=== PATIENT | female | born 1945 | race African-American/Black ===

== ENCOUNTER 2020-09-23 12:38 | Inpatient (IN) ==
[2020-09-23] MEDS ORDERED: hydrALAZINE 20 MG/1 ML VIAL IV STA (13:00)
[2020-09-23] MEDS ORDERED: ALBUTEROL 2.5 MG/3 ML NEB RESP TX STA (13:00)
[2020-09-23] MEDS ORDERED: ONDANSETRON 4 MG/2 ML VIAL IV ONE (13:00)
[2020-09-23] MEDS ORDERED: ASPIRIN 325 MG TABLET PO STA (13:00)
[2020-09-23] MEDS ORDERED: ALBUTEROL/IPRATROPIUM 3 ML NEB RESP TX STA (13:00)
[2020-09-23] MEDS ORDERED: methylPREDNISolone SOD SUC 125 MG/2 ML VIAL IV STA (13:01)
[2020-09-23] MEDS ORDERED: LORazepam 2 MG/1 ML VIAL IV STA (13:02)
[2020-09-23 13:24] LABS: Basophils % 0.1 % (0.0-0.8); Eosinophils % 0.4 % (0.00-10.9); Hematocrit 46.1 VOL% (35.7-47.0); Hemoglobin 14.3 GM/DL (12.0-16.0); Immature Granulocytes % 0.4 %; Immature Granulocytes Absolute 0.04 #; Lymphocytes # 0.6 10*3/uL (1.4-4.0); Lymphocytes % 5.2 % (21.3-54.2); Mean Corpuscular Volume 81.9 FL (87-102); Mean Platelet Volume 10.3 FL (9.6-12.0); Monocytes % 3.9 % (1.7-12.7); Platelet Count 317 T/CUMM (130-400); Red Blood Count 5.63 MC/CUMM (3.8-5.5); Red Cell Distribution Width 17.5 % (9.3-17.3); White Blood Count 11.4 T/CUMM (4-12)
[2020-09-23 13:34] LABS: PT Patient Result 10.5 SECS (9.8-11.9)
[2020-09-23 13:44] LABS: ABG Base Excess 9.1 MMOL/L (-2.5-2.5); ABG HCO3 32.9 MMOL/L (20-26); ABG PCO2 60.6 MM HG (35-48); ABG PH 7.391 (7.35-7.45); ABG PO2 98.2 MM HG (80-95); ABG TCO2 31.8 MMOL/L (23-27)
[2020-09-23 14:08] LABS: Alanine Aminotransferase 33 U/L (13-56); Albumin 2.8 G/DL (3.4-5.0); Alkaline Phosphatase 100 U/L (45-117); Aspartate Amino Transferase 26 U/L (0-37); Blood Urea Nitrogen 14 MG/DL (7-18); Calcium 9.5 MG/DL (8.5-10.1); Carbon Dioxide 36 MMOL/L (21-32); Estimated Glom Filtration Rate 119 ML/MIN; Glucose 200 MG/DL (74-106); Potassium 4.5 MMOL/L (3.5-5.1); Sodium 136 MMOL/L (136-145); Total Protein 6.2 G/DL (6.4-8.3); Troponin I < 0.015 NG/ML (0.00-0.045)
[2020-09-23] MEDS ORDERED: VANCOMYCIN INJ 1,000 MG in SODIUM CHLORIDE 0.9% 250 ML IV STA (15:36)
[2020-09-23] MEDS ORDERED: ACETAMINOPHEN 325 MG TABLET PO PRN (17:16)
[2020-09-23] MEDS ORDERED: hydrALAZINE 20 MG/1 ML VIAL IV PRN (17:16)
[2020-09-23] MEDS ORDERED: DEXTROSE 50% 25 GM/50 ML VIAL IV PRN ×2 (17:16)
[2020-09-23] MEDS ORDERED: GLUCAGON 1 MG VIAL IM PRN ×2 (17:16)
[2020-09-23] MEDS ORDERED: ONDANSETRON 4 MG TABLET PO PRN (17:25)
[2020-09-23] MEDS ORDERED: MIRTAZAPINE 15 MG TABLET PO PRN (17:25)
[2020-09-23] MEDS: LEVOFLOXACIN INJ 750 MG in PREMIX 1 EACH IV STA ×2 (18:41→18:58)
[2020-09-23] MEDS: ENOXAPARIN 40 MG/0.4 ML SYRINGE SUBCUT SCH (18:57)
[2020-09-23] MEDS: ALBUTEROL 2.5 MG/3 ML NEB RESP TX SCH ×2 (19:37→23:50)
[2020-09-23] MEDS: INSULIN LISPRO 100 UNIT/ML SUBCUT SCH (21:17)
[2020-09-24 05:49] LABS: Basophils % 0.1 % (0.0-0.8); Hematocrit 43.1 VOL% (35.7-47.0); Hemoglobin 13.8 GM/DL (12.0-16.0); Immature Granulocytes % 0.4 %; Immature Granulocytes Absolute 0.04 #; Lymphocytes # 0.5 10*3/uL (1.4-4.0); Lymphocytes % 4.2 % (21.3-54.2); Mean Corpuscular Volume 80.7 FL (87-102); Mean Platelet Volume 10.4 FL (9.6-12.0); Monocytes % 5.8 % (1.7-12.7); Neutrophils % 89.5 % (38.7-73.9); Platelet Count 283 T/CUMM (130-400); Red Blood Count 5.34 MC/CUMM (3.8-5.5); Red Cell Distribution Width 16.7 % (9.3-17.3); White Blood Count 11.1 T/CUMM (4-12)
[2020-09-24 06:10] LABS: Osmolality,Calculated 277.8 MOS/KG (273-304); Potassium 4.5 MMOL/L (3.5-5.1)
[2020-09-24 06:23] LABS: Lymphocytes 4 % (20-55); Platelet Estimate Adequate; Segmented Neutrophils 92 % (50-85); Total Cells Counted 100
[2020-09-24] MEDS: ALBUTEROL 2.5 MG/3 ML NEB RESP TX SCH ×2 (07:24→14:49)
[2020-09-24] MEDS ORDERED: ASPIRIN EC 81 MG TABLET PO SCH (09:00)
[2020-09-24] MEDS ORDERED: predniSONE 10 MG TABLET PO SCH (09:00)
[2020-09-24] MEDS: LEVOTHYROXINE 100 MCG TABLET PO SCH (09:04)
[2020-09-24] MEDS: amLODIPine 5 MG TABLET PO SCH (09:04)
[2020-09-24] MEDS: METOPROLOL SUCCINATE XL 100 MG TABLET PO SCH (09:04)
[2020-09-24] MEDS: FOLIC ACID 1 MG TABLET PO SCH (09:04)
[2020-09-24] MEDS: INSULIN LISPRO 100 UNIT/ML SUBCUT SCH ×4 (09:05→20:42)
[2020-09-24] MEDS: FUROSEMIDE 40 MG TABLET PO SCH (09:05)
[2020-09-24] MEDS: LEVOFLOXACIN INJ 500 MG in PREMIX 1 EACH IV SCH (09:05)
[2020-09-24] MEDS: VITAMIN E 400 UNIT CAPSULE PO SCH (09:05)
[2020-09-24] MEDS: POTASSIUM CHLORIDE 10 MEQ TABLET PO SCH (09:05)
[2020-09-24] MEDS: MORPHINE 4 MG/1 ML VIAL IV PRN ×3 (12:29→22:32)
[2020-09-24] MEDS: ALBUTEROL/IPRATROPIUM 3 ML NEB RESP TX SCH ×2 (13:49→19:06)
[2020-09-24] MEDS: methylPREDNISolone SOD SUC 40 MG/1 ML VIAL IV SCH ×2 (15:50→21:47)
[2020-09-24] MEDS: ENOXAPARIN 40 MG/0.4 ML SYRINGE SUBCUT SCH (18:26)
[2020-09-25] MEDS: ALBUTEROL/IPRATROPIUM 3 ML NEB RESP TX SCH ×4 (01:05→19:19)
[2020-09-25] MEDS: methylPREDNISolone SOD SUC 40 MG/1 ML VIAL IV SCH ×3 (05:59→21:27)
[2020-09-25 06:55] LABS: Basophils % 0.2 % (0.0-0.8); Hematocrit 45.9 VOL% (35.7-47.0); Immature Granulocytes % 0.5 %; Immature Granulocytes Absolute 0.07 #; Lymphocytes # 0.5 10*3/uL (1.4-4.0); Lymphocytes % 3.8 % (21.3-54.2); Mean Corpuscular HGB Conc 30.5 GM/DL (32-36); Mean Corpuscular Volume 84.1 FL (87-102); Mean Platelet Volume 10.5 FL (9.6-12.0); Monocytes % 2.5 % (1.7-12.7); Platelet Count 354 T/CUMM (130-400); Red Blood Count 5.46 MC/CUMM (3.8-5.5); Red Cell Distribution Width 16.8 % (9.3-17.3); White Blood Count 12.9 T/CUMM (4-12)
[2020-09-25 07:17] LABS: Calcium 9.4 MG/DL (8.5-10.1); Osmolality,Calculated 277.1 MOS/KG (273-304); Potassium 5.1 MMOL/L (3.5-5.1)
[2020-09-25 07:27] LABS: Band Neutrophils 2 % (0-10); Hypochromasia 1+; Lymphocytes 1 % (20-55); Segmented Neutrophils 96 % (50-85); Total Cells Counted 100
[2020-09-25 07:28] LABS: Microcytosis 1+; Platelet Estimate Normal
[2020-09-25] MEDS: FUROSEMIDE 40 MG TABLET PO SCH (10:00)
[2020-09-25] MEDS: VITAMIN E 400 UNIT CAPSULE PO SCH (10:00)
[2020-09-25] MEDS: amLODIPine 5 MG TABLET PO SCH (10:00)
[2020-09-25] MEDS: FOLIC ACID 1 MG TABLET PO SCH (10:00)
[2020-09-25] MEDS: METOPROLOL SUCCINATE XL 100 MG TABLET PO SCH (10:00)
[2020-09-25] MEDS: POTASSIUM CHLORIDE 10 MEQ TABLET PO SCH (10:00)
[2020-09-25] MEDS: LEVOTHYROXINE 100 MCG TABLET PO SCH (10:01)
[2020-09-25] MEDS: LEVOFLOXACIN INJ 500 MG in PREMIX 1 EACH IV SCH (10:01)
[2020-09-25] MEDS: INSULIN LISPRO 100 UNIT/ML SUBCUT SCH ×4 (10:56→21:26)
[2020-09-25 13:30] LABS: Lymphocytes,Pleural Fluid 94 %; Neutrophils,Pleural Fluid 6 %
[2020-09-25 13:31] LABS: RBC,Pleural Fluid 4281 T/CUMM
[2020-09-25 13:57] LABS: LDH,Body Fluid 915 U/L; Total Protein,Body Fluid 2.2 G/DL
[2020-09-25] MEDS ORDERED: FUROSEMIDE 40 MG/4 ML VIAL IV ONE (17:09)
[2020-09-25] MEDS: ENOXAPARIN 40 MG/0.4 ML SYRINGE SUBCUT SCH (17:22)
[2020-09-26] MEDS: ALBUTEROL/IPRATROPIUM 3 ML NEB RESP TX SCH ×2 (00:10→07:20)
[2020-09-26] MEDS: methylPREDNISolone SOD SUC 40 MG/1 ML VIAL IV SCH ×2 (05:20→14:30)
[2020-09-26 05:57] LABS: Basophils % 0.1 % (0.0-0.8); Hematocrit 43.8 VOL% (35.7-47.0); Hemoglobin 13.6 GM/DL (12.0-16.0); Immature Granulocytes % 0.6 %; Immature Granulocytes Absolute 0.07 #; Lymphocytes # 0.4 10*3/uL (1.4-4.0); Lymphocytes % 3.2 % (21.3-54.2); Mean Corpuscular HGB Conc 31.1 GM/DL (32-36); Mean Corpuscular Volume 82.6 FL (87-102); Mean Platelet Volume 10.8 FL (9.6-12.0); Monocytes % 3.2 % (1.7-12.7); Neutrophils % 92.9 % (38.7-73.9); Platelet Count 329 T/CUMM (130-400); Red Cell Distribution Width 16.5 % (9.3-17.3); White Blood Count 12.3 T/CUMM (4-12)
[2020-09-26 06:15] LABS: Calcium 9.7 MG/DL (8.5-10.1); Potassium 4.5 MMOL/L (3.5-5.1)
[2020-09-26 06:20] LABS: Lymphocytes 3 % (20-55); Segmented Neutrophils 95 % (50-85); Total Cells Counted 100
[2020-09-26 06:21] LABS: Hypochromasia Slight; Microcytosis 1+; Platelet Estimate Adequate
[2020-09-26] MEDS: VITAMIN E 400 UNIT CAPSULE PO SCH (09:35)
[2020-09-26] MEDS: amLODIPine 5 MG TABLET PO SCH (09:35)
[2020-09-26] MEDS: POTASSIUM CHLORIDE 10 MEQ TABLET PO SCH (09:35)
[2020-09-26] MEDS: LEVOTHYROXINE 100 MCG TABLET PO SCH (09:36)
[2020-09-26] MEDS: FUROSEMIDE 40 MG TABLET PO SCH (09:36)
[2020-09-26] MEDS: METOPROLOL SUCCINATE XL 100 MG TABLET PO SCH (09:36)
[2020-09-26] MEDS: FOLIC ACID 1 MG TABLET PO SCH (09:36)
[2020-09-26] MEDS: LEVOFLOXACIN INJ 500 MG in PREMIX 1 EACH IV SCH (09:37)
[2020-09-26] MEDS: INSULIN LISPRO 100 UNIT/ML SUBCUT SCH ×2 (09:38→14:27)
[2020-09-26 11:21] VITALS: BP 120/65
== END 2020-09-26 13:30 | disposition home health service (06) | DRG 180 ==
LOC: EDUNIT# → EDBD → N.EDINP 12:38 → N.ED 12:38 → N.4E 17:45
PROVIDERS: ADMIT Internal Medicine; ATTEND Internal Medicine

== ENCOUNTER 2020-09-28 05:20 | Observation (INO) ==
[2020-09-28] MEDS ORDERED: LEVALBUTEROL 1.25 MG/3 ML NEB RESP TX STA ×2 (05:32→07:00)
[2020-09-28] MEDS ORDERED: methylPREDNISolone SOD SUC 125 MG/2 ML VIAL IV STA (05:32)
[2020-09-28] MEDS ORDERED: FUROSEMIDE 40 MG/4 ML VIAL IV STA (05:36)
[2020-09-28 05:58] LABS: ABG Base Excess 10.1 MMOL/L (-2.5-2.5); ABG HCO3 33.8 MMOL/L (20-26); ABG Oxygen Saturation 95.7 % (95-100); ABG PO2 73.8 MM HG (80-95); ABG TCO2 31.3 MMOL/L (23-27); Allen Test Positive
[2020-09-28 06:08] LABS: Basophils % 0.1 % (0.0-0.8); Immature Granulocytes % 0.7 %; Immature Granulocytes Absolute 0.07 #; Lymphocytes # 0.3 10*3/uL (1.4-4.0); Lymphocytes % 2.7 % (21.3-54.2); Mean Corpuscular HGB Conc 31.9 GM/DL (32-36); Mean Corpuscular Volume 80.6 FL (87-102); Mean Platelet Volume 10.4 FL (9.6-12.0); Monocytes % 3.9 % (1.7-12.7); Neutrophils % 92.6 % (38.7-73.9); Platelet Count 290 T/CUMM (130-400); Red Blood Count 5.83 MC/CUMM (3.8-5.5); Red Cell Distribution Width 17.2 % (9.3-17.3); White Blood Count 9.9 T/CUMM (4-12)
[2020-09-28 06:27] LABS: Albumin 2.5 G/DL (3.4-5.0); Bilirubin,Total 0.6 MG/DL (0.2-1.0); Calcium 9.3 MG/DL (8.5-10.1); Osmolality,Calculated 282.2 MOS/KG (273-304); Potassium 4.4 MMOL/L (3.5-5.1); Total Protein 6.2 G/DL (6.4-8.3)
[2020-09-28 06:28] LABS: INR 1.1; PT Patient Result 12.1 SECS (9.8-11.9)
[2020-09-28 06:31] LABS: Lymphocytes 2 % (20-55); Platelet Estimate Adequate; Segmented Neutrophils 96 % (50-85); Total Cells Counted 100
[2020-09-28] MEDS ORDERED: INSULIN LISPRO 100 UNIT/ML SUBCUT STA (07:01)
[2020-09-28 07:03] LABS: Bilirubin,Urine Negative (Negative); Blood, Urine Negative (Negative); Glucose,Urine (UA) 150 mg/dL (Negative); Hyaline Casts,Urine 5 /LPF (0-3); Ketones,Urine 5 mg/dL (Negative); Mucus,Urine Occasional /LPF (Occasional); Nitrite,Urine Negative (Negative); Protein,Urine Negative; RBC,Urine 2 /HPF (0-4); Squamous Epithelial Cell,Urine Occasional /HPF (0-10); Urine Appearance CLEAR (Clear); Urine Color Straw (Yellow); Urine Specific Gravity 1.008 (1.001-1.035); Urine Urobilinogen < 2.0 EU/DL (0.2-1.0); WBC,Urine 3 /HPF (0-6)
[2020-09-28] MEDS ORDERED: DEXTROSE 50% 25 GM/50 ML VIAL IV PRN (09:48)
[2020-09-28] MEDS ORDERED: GLUCAGON 1 MG VIAL IM PRN (09:48)
[2020-09-28] MEDS ORDERED: ONDANSETRON 4 MG/2 ML VIAL IV PRN (09:48)
[2020-09-28] MEDS ORDERED: ACETAMINOPHEN 325 MG TABLET PO PRN (09:48)
[2020-09-28] MEDS ORDERED: MIRTAZAPINE 15 MG TABLET PO PRN (09:49)
[2020-09-28] MEDS ORDERED: LEVOTHYROXINE 50 MCG TABLET ONE (11:21)
[2020-09-28] MEDS: METOPROLOL SUCCINATE XL 100 MG TABLET PO SCH (11:35)
[2020-09-28] MEDS: POTASSIUM CHLORIDE 20 MEQ TABLET PO SCH (11:35)
[2020-09-28] MEDS: FUROSEMIDE 40 MG TABLET PO SCH (11:35)
[2020-09-28] MEDS: LEVOTHYROXINE 100 MCG TABLET PO SCH (11:35)
[2020-09-28] MEDS: ASPIRIN EC 81 MG TABLET PO SCH (11:35)
[2020-09-28] MEDS: ENOXAPARIN 40 MG/0.4 ML SYRINGE SUBCUT SCH (12:00)
[2020-09-29 06:02] LABS: Basophils % 0.2 % (0.0-0.8); Eosinophils % 0.1 % (0.00-10.9); Hematocrit 42.2 VOL% (35.7-47.0); Hemoglobin 13.8 GM/DL (12.0-16.0); Immature Granulocytes % 0.7 %; Immature Granulocytes Absolute 0.09 #; Lymphocytes # 0.5 10*3/uL (1.4-4.0); Mean Corpuscular HGB Conc 32.7 GM/DL (32-36); Mean Corpuscular Volume 78.4 FL (87-102); Mean Platelet Volume 11.2 FL (9.6-12.0); Monocytes % 6.5 % (1.7-12.7); Neutrophils % 88.5 % (38.7-73.9); Platelet Count 309 T/CUMM (130-400); Red Blood Count 5.38 MC/CUMM (3.8-5.5); Red Cell Distribution Width 17.1 % (9.3-17.3); White Blood Count 13.3 T/CUMM (4-12)
[2020-09-29 06:10] LABS: Calcium 9.1 MG/DL (8.5-10.1); Osmolality,Calculated 283.2 MOS/KG (273-304)
[2020-09-29] MEDS: LEVOTHYROXINE 100 MCG TABLET PO SCH (06:50)
[2020-09-29 08:30] LABS: Band Neutrophils 3 % (0-10); Hypochromasia Slight; Lymphocytes 3 % (20-55); Platelet Estimate Normal; Segmented Neutrophils 87 % (50-85); Total Cells Counted 100
[2020-09-29] MEDS: METOPROLOL SUCCINATE XL 100 MG TABLET PO SCH (10:00)
[2020-09-29] MEDS: POTASSIUM CHLORIDE 20 MEQ TABLET PO SCH (10:00)
[2020-09-29] MEDS: FUROSEMIDE 40 MG TABLET PO SCH (10:00)
[2020-09-29] MEDS: ASPIRIN EC 81 MG TABLET PO SCH (10:00)
[2020-09-29] MEDS: FOLIC ACID 1 MG TABLET PO SCH (10:00)
[2020-09-29] MEDS: ENOXAPARIN 40 MG/0.4 ML SYRINGE SUBCUT SCH (10:01)
[2020-09-29] MEDS: VITAMIN E 400 UNIT CAPSULE PO SCH (10:01)
[2020-09-29] MEDS ORDERED: ALBUTEROL 2.5 MG/3 ML NEB RESP TX PRN (23:00)
[2020-09-30 06:01] LABS: Basophils % 0.1 % (0.0-0.8); Eosinophils # 0.1 10*3/uL (0.0-0.87); Eosinophils % 1.3 % (0.00-10.9); Hematocrit 42.2 VOL% (35.7-47.0); Hemoglobin 13.6 GM/DL (12.0-16.0); Immature Granulocytes % 0.7 %; Immature Granulocytes Absolute 0.07 #; Lymphocytes % 9.3 % (21.3-54.2); Mean Corpuscular HGB Conc 32.2 GM/DL (32-36); Mean Corpuscular Volume 79.5 FL (87-102); Monocytes % 7.5 % (1.7-12.7); Neutrophils % 81.1 % (38.7-73.9); Platelet Count 320 T/CUMM (130-400); Red Blood Count 5.31 MC/CUMM (3.8-5.5); Red Cell Distribution Width 16.6 % (9.3-17.3); White Blood Count 10.4 T/CUMM (4-12)
[2020-09-30] MEDS: LEVOTHYROXINE 100 MCG TABLET PO SCH (06:13)
[2020-09-30 06:28] LABS: Calcium 8.8 MG/DL (8.5-10.1); Osmolality,Calculated 278.2 MOS/KG (273-304); Potassium 3.5 MMOL/L (3.5-5.1)
[2020-09-30] MEDS: METOPROLOL SUCCINATE XL 100 MG TABLET PO SCH (10:04)
[2020-09-30] MEDS: ASPIRIN EC 81 MG TABLET PO SCH (10:05)
[2020-09-30] MEDS: FOLIC ACID 1 MG TABLET PO SCH (10:05)
[2020-09-30] MEDS: FUROSEMIDE 40 MG TABLET PO SCH (10:05)
[2020-09-30] MEDS: POTASSIUM CHLORIDE 20 MEQ TABLET PO SCH (10:06)
[2020-09-30] MEDS: ENOXAPARIN 40 MG/0.4 ML SYRINGE SUBCUT SCH (10:19)
[2020-09-30] MEDS: VITAMIN E 400 UNIT CAPSULE PO SCH (10:26)
[2020-10-01] MEDS: LEVOTHYROXINE 100 MCG TABLET PO SCH (05:46)
[2020-10-01 07:45] LABS: Basophils % 0.1 % (0.0-0.8); Eosinophils # 0.2 10*3/uL (0.0-0.87); Hematocrit 41.4 VOL% (35.7-47.0); Hemoglobin 13.7 GM/DL (12.0-16.0); Immature Granulocytes % 0.8 %; Immature Granulocytes Absolute 0.07 #; Lymphocytes # 0.7 10*3/uL (1.4-4.0); Lymphocytes % 7.4 % (21.3-54.2); Mean Corpuscular HGB Conc 33.1 GM/DL (32-36); Mean Platelet Volume 10.4 FL (9.6-12.0); Monocytes % 11.2 % (1.7-12.7); Neutrophils % 78.5 % (38.7-73.9); Platelet Count 286 T/CUMM (130-400); Red Blood Count 5.31 MC/CUMM (3.8-5.5); Red Cell Distribution Width 16.5 % (9.3-17.3); White Blood Count 9.3 T/CUMM (4-12)
[2020-10-01 08:19] LABS: Albumin 2.1 G/DL (3.4-5.0); Bilirubin,Total 0.6 MG/DL (0.2-1.0); Calcium 8.8 MG/DL (8.5-10.1); Osmolality,Calculated 277.1 MOS/KG (273-304); Potassium 3.7 MMOL/L (3.5-5.1); Total Protein 5.3 G/DL (6.4-8.3)
[2020-10-01] MEDS: POTASSIUM CHLORIDE 20 MEQ TABLET PO SCH (08:29)
[2020-10-01] MEDS: METOPROLOL SUCCINATE XL 100 MG TABLET PO SCH (08:29)
[2020-10-01] MEDS: FOLIC ACID 1 MG TABLET PO SCH (08:29)
[2020-10-01] MEDS: FUROSEMIDE 40 MG TABLET PO SCH (08:31)
[2020-10-01] MEDS: ASPIRIN EC 81 MG TABLET PO SCH (08:31)
[2020-10-01] MEDS: VITAMIN E 400 UNIT CAPSULE PO SCH (08:31)
[2020-10-01] MEDS: ENOXAPARIN 40 MG/0.4 ML SYRINGE SUBCUT SCH (09:14)
[2020-10-01 12:51] VITALS: BP 109/61
== END 2020-10-01 13:40 | disposition home or self-care (01) ==
LOC: EDBD → EDUNIT# → N.EDINP 05:20 → N.ED 05:20 → N.TELES 17:15
PROVIDERS: ADMIT Internal Medicine; ATTEND Internal Medicine

== ENCOUNTER 2020-10-10 21:03 | Inpatient (IN) ==
[2020-10-10] MEDS ORDERED: SODIUM CHLORIDE 0.9% 1,000 ML IV STA ×2 (22:05→22:44)
[2020-10-10] MEDS ORDERED: SODIUM CHLORIDE 0.9% 500 ML IV STA (22:05)
[2020-10-10 22:34] LABS: Basophils % 0.1 % (0.0-0.8); Hematocrit 46.3 VOL% (35.7-47.0); Hemoglobin 14.6 GM/DL (12.0-16.0); Immature Granulocytes % 0.8 %; Immature Granulocytes Absolute 0.15 #; Lymphocytes # 0.4 10*3/uL (1.4-4.0); Lymphocytes % 2.1 % (21.3-54.2); Mean Corpuscular HGB Conc 31.5 GM/DL (32-36); Mean Corpuscular Volume 81.1 FL (87-102); Mean Platelet Volume 10.7 FL (9.6-12.0); Monocytes % 3.9 % (1.7-12.7); Neutrophils % 93.1 % (38.7-73.9); Platelet Count 302 T/CUMM (130-400); Red Blood Count 5.71 MC/CUMM (3.8-5.5); Red Cell Distribution Width 18.7 % (9.3-17.3); White Blood Count 19.9 T/CUMM (4-12)
[2020-10-10] MEDS ORDERED: INSULIN REGULAR 100 UNIT/ML IV STA (22:44)
[2020-10-10 22:47] LABS: INR 1.1; PT Patient Result 11.4 SECS (9.8-11.9); Partial Thromboplastin Time 24.8 SECS (23.9-33.8)
[2020-10-10] MEDS ORDERED: LEVOFLOXACIN INJ 750 MG in PREMIX 1 EACH IV STA (22:47)
[2020-10-10 22:55] LABS: Albumin 2.5 G/DL (3.4-5.0); Bilirubin,Total 0.5 MG/DL (0.2-1.0); Calcium 9.6 MG/DL (8.5-10.1); Osmolality,Calculated 295.2 MOS/KG (273-304); Total Protein 5.6 G/DL (5.0-7.5)
[2020-10-10 22:58] LABS: Troponin I 0.056 NG/ML (0.00-0.045)
[2020-10-10 23:11] LABS: Band Neutrophils 1 % (0-10); Lymphocytes 3 % (20-55); Segmented Neutrophils 92 % (50-85); Total Cells Counted 100
[2020-10-10 23:12] LABS: Hypochromasia Slight; Platelet Estimate Normal
[2020-10-10 23:13] LABS: Reactive Lymphocytes Few; Stomatocytes Few
[2020-10-11 00:17] LABS: Ferritin 2670.6 ng/ml (8-252)
[2020-10-11] MEDS ORDERED: GLUCAGON 1 MG VIAL IM PRN ×2 (00:22)
[2020-10-11] MEDS ORDERED: ZALEPLON 5 MG CAPSULE PO PRN (00:22)
[2020-10-11] MEDS ORDERED: ACETAMINOPHEN 325 MG TABLET PO PRN (00:22)
[2020-10-11] MEDS ORDERED: DEXTROSE 50% 25 GM/50 ML VIAL IV PRN ×2 (00:22)
[2020-10-11] MEDS ORDERED: MELATONIN 3 MG TABLET PO PRN (00:22)
[2020-10-11] MEDS ORDERED: ONDANSETRON 4 MG/2 ML VIAL IV PRN (00:22)
[2020-10-11] MEDS ORDERED: ENOXAPARIN 40 MG/0.4 ML SYRINGE SUBCUT SCH (00:30)
[2020-10-11] MEDS ORDERED: SODIUM CHLORIDE 0.9% 1,000 ML IV ONE (03:27)
[2020-10-11 06:53] LABS: Basophils % 0.1 % (0.0-0.8); Eosinophils % 0.2 % (0.00-10.9); Hematocrit 45.7 VOL% (35.7-47.0); Hemoglobin 14.5 GM/DL (12.0-16.0); Immature Granulocytes Absolute 0.17 #; Lymphocytes # 0.4 10*3/uL (1.4-4.0); Lymphocytes % 2.4 % (21.3-54.2); Mean Corpuscular HGB Conc 31.7 GM/DL (32-36); Mean Platelet Volume 11.3 FL (9.6-12.0); Monocytes % 5.7 % (1.7-12.7); Neutrophils % 90.6 % (38.7-73.9); Platelet Count 274 T/CUMM (130-400); Red Blood Count 5.57 MC/CUMM (3.8-5.5); Red Cell Distribution Width 18.3 % (9.3-17.3); White Blood Count 16.7 T/CUMM (4-12)
[2020-10-11 07:16] LABS: Lymphocytes 1 % (20-55); Platelet Estimate Adequate; Segmented Neutrophils 91 % (50-85); Total Cells Counted 100
[2020-10-11] MEDS ORDERED: INSULIN REGULAR 100 UNIT/ML SUBCUT SCH (07:30)
[2020-10-11 07:37] LABS: Albumin 2.2 G/DL (3.4-5.0); Bilirubin,Total 0.6 MG/DL (0.2-1.0); Ferritin 2335.6 ng/ml (8-252); Osmolality,Calculated 284.1 MOS/KG (273-304); Potassium 4.5 MMOL/L (3.5-5.1); Total Protein 5.3 G/DL (5.0-7.5)
[2020-10-11 08:23] VITALS: BP 169/99
[2020-10-11 08:46] LABS: Calcium 9.6 MG/DL (8.5-10.1); Osmolality,Calculated 279.5 MOS/KG (273-304); Potassium 4.6 MMOL/L (3.5-5.1)
[2020-10-11] MEDS ORDERED: MORPHINE 4 MG/1 ML VIAL ONE (08:50)
[2020-10-11] MEDS ORDERED: MORPHINE 4 MG/1 ML VIAL IV ONE (08:51)
[2020-10-11] MEDS ORDERED: FAMOTIDINE 20 MG TABLET PO SCH (09:00)
[2020-10-11] MEDS ORDERED: ZINC GLUCONATE 50 MG TABLET PO SCH (09:00)
[2020-10-11] MEDS ORDERED: ASCORBIC ACID 500 MG TABLET PO SCH (09:00)
[2020-10-11] MEDS ORDERED: CETIRIZINE 10 MG TABLET PO SCH (09:00)
[2020-10-11] MEDS ORDERED: CHOLECALCIFEROL 1,000 UNIT TABLET PO SCH (09:00)
[2020-10-11] MEDS ORDERED: MORPHINE 4 MG/1 ML VIAL IV PRN (09:39)
[2020-10-11] MEDS ORDERED: LORazepam 2 MG/1 ML VIAL IV PRN (09:39)
[2020-10-11] MEDS ORDERED: LEVOFLOXACIN INJ 750 MG in PREMIX 1 EACH IV SCH (22:00)
== END 2020-10-11 11:40 | disposition expired | DRG 177 ==
LOC: N.ED 21:03 → N.EDINP 10-11 00:22 → N.2E 10-11 02:09
PROVIDERS: ADMIT Internal Medicine; ATTEND Internal Medicine